=== PATIENT | male | born 1980 | race Caucasian/White ===

== ENCOUNTER 2024-09-29 02:34 | Emergency (ER) | payer OTHER ==
[~2024-09-29] VITALS: Ht 177.8 cm; Wt 90.7 kg
[2024-09-29 03:08] VITALS: BP 126/73; TEMP 98; O2SAT 98
[2024-09-29] MEDS ORDERED: AMOX-430 PO (03:15)
[2024-09-29] MEDS ORDERED: AMOX/CLAVULANATE 875 MG TABLET ONE (03:20)
[2024-09-29] MEDS: AMOX/CLAVULANATE 875 MG TABLET PO ONE (03:25)
== END 2024-09-29 03:26 | disposition home or self-care (01) ==
LOC: ER 02:38
DX: K04.7 Periapical abscess without sinus (principal)